=== PATIENT | female | born 2005 | race Caucasian/White ===

== ENCOUNTER 2025-01-21 12:40 | Emergency (ER) | payer OTHER ==
[~2025-01-21] VITALS: Ht 154.9 cm; Wt 52.0 kg
[2025-01-21] MEDS ORDERED: ZYRTEC10 M3 PO (13:51)
[2025-01-21] MEDS ORDERED: LEVOTHYROXINE137 MC1 PO (13:51)
[2025-01-21 14:14] LABS: BASOPHILS 0.1 % (0.1-1.2); EOSINOPHILS 0 % (0.7-5.8); LYMPHOCYTES 6.5 % (19.3-51.7); MCH 30.0 PG (25.6-32.2); MCHC 34.1 g/dL (32.2-35.5); MCV 88.0 fL (79.4-94.8); MONOCYTES 6.8 % (4.7-12.5); NEUTROPHILS 86.3 % (34.0-71.1); RBC 4.10 M/uL (3.93-5.22)
[2025-01-21] MEDS ORDERED: SODIUM CHLORIDE 0.9% 1,000 ML IV PRN (14:15)
[2025-01-21] MEDS ORDERED: HYDROmorphone HCL 1 MG/ML SYR IV ONE (14:15)
[2025-01-21 14:19] LABS: BLOOD/HGB, URINE LARGE (Negative); KETONE, URINE NEGATIVE (Negative); LEUK ESTERASE, URINE MODERATE (negative); NITRITE, URINE NEGATIVE (negative)
[2025-01-21 14:30] LABS: CRYSTALS, URINE NONE SEEN (0-1+)
[2025-01-21 14:30] LABS: ALT (SGPT) 17.0 U/L (14-59); AST (SGOT) 14.0 U/L (15-37); GLOMERULAR FILTRATION RATE,EST 135.0 mL/min (>60); PROTEIN, TOTAL 7.0 g/dL (6.4-8.2); UREA NITROGEN 8.0 mg/dL (7-18)
[2025-01-21 14:31] LABS: BACTERIA, URINE RARE /hpf (negative); CASTS, URINE NONE SEEN \\lpf
[2025-01-21 14:32] LABS: EPITHELIAL CELLS, URINE SQUAMOUS 2+ /lpf (0-1+); REFLEX CULTURE, URINE No (No)
[2025-01-21] MEDS ORDERED: CEPHALEXIN500 M1 PO (17:13)
[2025-01-21 17:21] VITALS: BP 110/68
== END 2025-01-21 17:22 | disposition home or self-care (01) ==
LOC: ED 12:40
PROVIDERS: Emergency Medicine
DX: N12 Tubulo-interstitial nephritis, not specified as acute or chronic (principal); Z91.048 Other nonmedicinal substance allergy status
CPT/HCPCS: 36415; 74177; 80053; 81001; 83690; 84703; 85025; 96374; 96375; 99284-25; J1171; J2405; J7030; Q9967

== ENCOUNTER 2025-05-26 15:34 | Emergency (ER) | payer OTHER ==
[~2025-05-26] VITALS: Ht 154.9 cm; Wt 50.2 kg
[~2025-05-26 15:34] MED LIST: CEPHALEXIN500 M1 PO; LEVOTHYROXINE137 MC1 PO; ZYRTEC10 M3 PO
[2025-05-26 16:17] VITALS: BP 114/82
== END 2025-05-26 16:18 | disposition home or self-care (01) ==
LOC: ED 15:34
DX: J02.9 Acute pharyngitis, unspecified (principal); Z79.899 Other long term (current) drug therapy; Z91.048 Other nonmedicinal substance allergy status
CPT/HCPCS: 99283